=== PATIENT | male | born 2000 | race Caucasian/White ===

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

== ENCOUNTER 2020-10-26 01:57 | Emergency (ER) | payer OTHER, SELFPAY ==
[2020-10-26 04:58] LABS: Absolute Lymphocytes (CBC) 2.3 K/uL (0.7-4.9); Basophils % 0.3 % (0-1.3); Lymphocytes % 36.6 % (15.3-44.8); MPV 8.9 fL (7.6-11.3); RBC Red Blood Cell Count 5.35 M/uL (4.33-5.43)
[2020-10-26 05:22] LABS: ALT/SGPT 44 U/L (12-78); AST/SGOT 19 U/L (15-37); Albumin 4.1 g/dL (3.4-5.0); Alkaline Phosphatase 69 U/L (45-117); BUN Blood Urea Nitrogen 11 mg/dL (7-18); Bicarbonate 25 mmol/L (21-32); Bilirubin Direct < 0.1 mg/dL (0-0.2); Bilirubin Total 0.3 mg/dL (0.2-1.0); C-Reactive Protein 4.98 mg/L (<3.00); Glucose Level 85 mg/dL (74-106); NT PRO-BNP 22 pg/mL (<125); Potassium 3.7 mmol/L (3.5-5.1); Sodium Level 138 mmol/L (136-145); Troponin (Emerg Dept Use Only) < 0.02 ng/mL (0.0-0.045)
[2020-10-26] MEDS ORDERED: AZITHROMYCIN 250 MG TAB ONE (05:27)
[2020-10-26] MEDS ORDERED: ASPIRIN 81 MG CHEWABLE TABLET ONE (05:27)
[2020-10-26] MEDS ORDERED: NA CHLORIDE 0.9% 1,000 ML ONE (05:27)
[2020-10-26] MEDS ORDERED: FAMOTIDINE 20 MG TAB ONE ×2 (05:28→05:36)
--- NOTE | 2020-10-26 05:42 | ER ---
Nurse's Notes [facility] Name: Yobani Yu Age: 19 yrs Sex: Male : 2000 Arrival Date: 10/26/2020 Time: 02:03 Bed 10 Private MD: Diagnosis: Coronavirus infection, unspecified;Dyspnea;Obesity, unspecified Presentation: 10/26 02:33 Chief complaint: Patient states: Sinus symptoms that began on 10/23/20, reports taking lp1 x3 home kits that were COIVD +; Reports today began pain with breathing; hx of asthma. Coronavirus screen: Client reports previous positive COVID test result. Ebola Screen: No symptoms or risks identified at this time. Risk Assessment: Do you want to hurt yourself or someone else? Patient reports no desire to harm self or others. Onset of symptoms was October 26, 2020. 02:33 Method Of Arrival: Ambulatory lp1 02:33 Acuity: JACKIE 4 lp1 02:36 Initial Sepsis Screen: Does the patient meet any 2 criteria? No. Patient's initial lp1 sepsis screen is negative. Does the patient have a suspected source of infection? No. Patient's initial sepsis screen is negative. Triage Assessment: 05:18 General: Appears in no apparent distress. Behavior is calm, cooperative, appropriate lh3 for age. Pain: Denies pain. Respiratory: Reports cough that is non-productive, Onset: The symptoms/episode began/occurred 3 days ago, the patient has mild shortness of breath. Historical: - Allergies: 02:35 NKA; lp1 - Home Meds: 02:35 None [Active]; lp1 - PMHx: 02:35 Asthma; lp1 - PSHx: 02:35 None; lp1 - Immunization history:: Adult Immunizations up to date. - Social history:: Smoking status: Reported history of juuling and/or vaping. Screenin:35 Abuse screen: Denies threats or abuse. Denies injuries from another. Nutritional lp1 screening: No deficits noted. Tuberculosis screening: No symptoms or risk factors identified. Fall Risk None identified. Assessment: 05:18 Cardiovascular: No deficits noted. Rhythm is regular. Respiratory: Airway is patent lh3 Respiratory effort is even, unlabored, Breath sounds are diminished. Vital Signs: 02:36 BP 135 / 78; Pulse 73; Resp 18; Temp 98.4(O); Pulse Ox 100% on R/A; Weight 158.76 kg lp1 (R); Height 6 ft. 1 in. (185.42 cm); Pain 0/10; 06:41 BP 135 / 80; Pulse 19; Resp 18; Temp 98.2; Pulse Ox 98% ; lh3 02:36 Body Mass Index 46.18 (158.76 kg, 185.42 cm) lp1 ED Course: 02:03 Patient arrived in ED. bp1 02:35 Triage completed. lp1 02:35 Arm band placed on. lp1 02:40 Ramu Dudley MD is Attending Physician. edith 03:06 XRAY CXR (1 view) In Process Unspecified. EDMS 05:09 Suzanna Ward, JOHN is Primary Nurse. lh3 05:18 EKG completed in triage. Results shown to MD. lh3 05:18 Patient has correct armband on for positive identification. lh3 05:18 No provider procedures requiring assistance completed. Inserted saline lock: 20 gauge lh3 in left antecubital area, using aseptic technique. 06:24 LFT's Sent. lh3 06:24 CBC with Diff Sent. lh3 06:24 Basic Metabolic Panel Sent. lh3 06:42 IV discontinued, bleeding controlled. lh3 Administered Medications: 05:10 Not Given (order changed): Pepcid (famotidine) 20 mg IVP once; dilute with 10 mL 0.9% lh3 NaCl; give over 2 minutes 05:17 Drug: Zithromax (azithromycin) 500 mg Route: PO; lh3 06:22 Follow up: Response: No adverse reaction lh3 05:17 Drug: Aspirin Chewable Tablet 324 mg Route: PO; lh3 06:21 Follow up: Response: No adverse reaction lh3 05:17 Drug: Pepcid (famotidine) 40 mg Route: PO; lh3 06:43 Follow up: Response: No adverse reaction lh3 06:00 Drug: NS 0.9% 1000 ml Route: IV; Rate: 1 bolus; Site: left antecubital; lh3 06:23 Follow up: Response: No adverse reaction; IV Status: Completed infusion lh3 06:43 Follow up: IV Status: Completed infusion; IV Intake: 1000ml lh3 06:18 Not Given (Patient Refused): [employer]-COV Dose Pack 120 mg/mL-120 mg/mL (EUA) 1 vials IV edith at per protocol once Intake: 06:43 IV: 1000ml; Total: 1000ml. 3 Outcome: 05:41 Discharge ordered by . edith 06:42 Discharged to home ambulatory. [facility] 06:42 Condition: stable 06:42 Discharge instructions given to patient, Instructed on discharge instructions, medication usage, Demonstrated understanding of instructions, follow-up care, medications. 06:44 Patient left the ED. 3 Signatures: Dispatcher [employer] EDMS Ramu Dudley MD MD cha Pena, Laura, RN RN lp1 Gunjan Mancilla Latisha, JOHN RN lh3
--- NOTE | 2020-10-26 05:42 | EDPHYS ---
Physician Documentation [facility] Name: Yobani Yu Age: 19 yrs Sex: Male : 2000 Arrival Date: 10/26/2020 Time: 02:03 Bed 10 Private MD: CHUY Physician Ramu Dudley HPI: 10/26 03:46 This 19 yrs old Male presents to ER via Ambulatory with complaints of edith Breathing Difficulty. 03:46 The patient has shortness of breath at rest, with light activity. Onset: The edith symptoms/episode began/occurred 3 day(s) ago. Duration: The symptoms are continuous, and are steadily getting worse. The patient's shortness of breath has no apparent modifying factors. Associated signs and symptoms: Pertinent positives: non-productive cough, dizziness, nausea. Severity of symptoms: At their worst the symptoms were moderate in the emergency department the symptoms have improved mildly. The patient has not experienced similar symptoms in the past. Historical: - Allergies: 02:35 NKA; lp1 - Home Meds: 02:35 None [Active]; lp1 - PMHx: 02:35 Asthma; lp1 - PSHx: 02:35 None; lp1 - Immunization history:: Adult Immunizations up to date. - Social history:: Smoking status: Reported history of juuling and/or vaping. ROS: 03:46 Constitutional: Negative for fever, chills, and weight loss, Eyes: Negative for injury, edith pain, redness, and discharge, ENT: Negative for injury, pain, and discharge, Neck: Negative for injury, pain, and swelling, Cardiovascular: Negative for chest pain, palpitations, and edema, Abdomen/GI: Negative for abdominal pain, nausea, vomiting, diarrhea, and constipation, Back: Negative for injury and pain, : Negative for injury, bleeding, discharge, and swelling, MS/Extremity: Negative for injury and deformity, Skin: Negative for injury, rash, and discoloration, Neuro: Negative for headache, weakness, numbness, tingling, and seizure, Psych: Negative for depression, anxiety, suicide ideation, homicidal ideation, and hallucinations, Allergy/Immunology: Negative for hives, rash, and allergies, Endocrine: Negative for neck swelling, polydipsia, polyuria, polyphagia, and marked weight changes, Hematologic/Lymphatic: Negative for swollen nodes, abnormal bleeding, and unusual bruising. 03:46 Respiratory: Positive for cough, shortness of breath, at rest. Exam: 03:46 Constitutional: This is a well developed, well nourished patient who is awake, alert, edith and in no acute distress. Head/Face: Normocephalic, atraumatic. Eyes: Pupils equal round and reactive to light, extra-ocular motions intact. Lids and lashes normal. Conjunctiva and sclera are non-icteric and not injected. Cornea within normal limits. Periorbital areas with no swelling, redness, or edema. ENT: Nares patent. No nasal discharge, no septal abnormalities noted. Tympanic membranes are normal and external auditory canals are clear. Oropharynx with no redness, swelling, or masses, exudates, or evidence of obstruction, uvula midline. Mucous membranes moist. Neck: Trachea midline, no thyromegaly or masses palpated, and no cervical lymphadenopathy. Supple, full range of motion without nuchal rigidity, or vertebral point tenderness. No Meningismus. Chest/axilla: Normal chest wall appearance and motion. Nontender with no deformity. No lesions are appreciated. Cardiovascular: Regular rate and rhythm with a normal S1 and S2. No gallops, murmurs, or rubs. Normal PMI, no JVD. No pulse deficits. Respiratory: Lungs have equal breath sounds bilaterally, clear to auscultation and percussion. No rales, rhonchi or wheezes noted. No increased work of breathing, no retractions or nasal flaring. Abdomen/GI: Soft, non-tender, with normal bowel sounds. No distension or tympany. No guarding or rebound. No evidence of tenderness throughout. Back: No spinal tenderness. No costovertebral tenderness. Full range of motion. Male : Normal genitalia with no discharge or lesions. Skin: Warm, dry with normal turgor. Normal color with no rashes, no lesions, and no evidence of cellulitis. MS/ Extremity: Pulses equal, no cyanosis. Neurovascular intact. Full, normal range of motion. Neuro: Awake and alert, GCS 15, oriented to person, place, time, and situation. Cranial nerves II-XII grossly intact. Motor strength 5/5 in all extremities. Sensory grossly intact. Cerebellar exam normal. Normal gait. Psych: Awake, alert, with orientation to person, place and time. Behavior, mood, and affect are within normal limits. 03:46 Musculoskeletal/extremity: DVT Exam: No signs of deep vein thrombosis. no pain, no swelling, no tenderness, negative Homans' sign noted on exam, no appreciated bluish discoloration, no erythema, no increased warmth. 06:19 ECG was reviewed by the Attending Physician. [facility] Vital Signs: 02:36 BP 135 / 78; Pulse 73; Resp 18; Temp 98.4(O); Pulse Ox 100% on R/A; Weight 158.76 kg lp1 (R); Height 6 ft. 1 in. (185.42 cm); Pain 0/10; 06:41 BP 135 / 80; Pulse 19; Resp 18; Temp 98.2; Pulse Ox 98% ; lh3 02:36 Body Mass Index 46.18 (158.76 kg, 185.42 cm) lp1 MDM: 03:40 Patient medically screened. [facility] 05:39 Differential diagnosis: Anxiety Reaction asthma, Bronchitis CHF exacerbation, pulmonary edith edema, Pulmonary Embolism reactive airway disease, Sepsis. Antibiotic administration: The patient is discharged and will get outpatient antibiotics, Zithromax. The patient's Wells Deep Vein Thrombosis Score was calculated as follows: Total Score: 0-2 Pts- Low Risk. Differential Diagnosis: Bronchitis Influenza Upper Respiratory Infection Sinusitis Pharyngitis Otitis Media Allergic Rhinitis Asthma Exacerbation Viral Syndrome Pneumonia. The patient's pulmonary embolism risk score was calculated as follows: Total Score: 0-2 points. This patient was found to be at low risk for a pulmonary embolism by using the Well's assessment criteria. Immunization status:. Data reviewed: vital signs, nurses notes, [facility] records, lab test result(s), CBC, electrolytes, Flu: hepatic panel, Rh: urinalysis. Data interpreted: monitor and storage bin tender: rate is 73 beats/min, rhythm is regular, Pulse oximetry: on room air is 100 %. Test interpretation: by ED physician or midlevel provider: ECG, plain radiologic studies. Counseling: I had a detailed discussion with the patient and/or guardian regarding: the historical points, exam findings, and any diagnostic results supporting the discharge/admit diagnosis, radiology results. 06:19 ED course: refused Regeneron. [facility] 10/26 02:46 Order name: Basic Metabolic Panel [facility] 10/26 02:46 Order name: CBC with Diff [facility] 10/26 02:46 Order name: LFT's [facility] 10/26 02:46 Order name: Magnesium; Complete Time: 05:38 [facility] 10/26 02:46 Order name: NT PRO-BNP; Complete Time: 05:38 [facility] 10/26 02:46 Order name: Troponin (emerg Dept Use Only); Complete Time: 05:38 [facility] 10/26 02:39 Order name: XRAY CXR (1 view) lp1 10/26 02:46 Order name: Ferritin; Complete Time: 05:38 [facility] 10/26 02:46 Order name: CRP; Complete Time: 05:38 [facility] 10/26 02:46 Order name: D-Dimer; Complete Time: 05:38 [facility] 10/26 02:46 Order name: Basic Metabolic Panel; Complete Time: 05:38 [facility] 10/26 02:46 Order name: CBC with Automated Diff; Complete Time: 05:38 [facility] 10/26 02:46 Order name: Liver (Hepatic) Function; Complete Time: 05:38 [facility] 10/26 02:46 Order name: EKG; Complete Time: 02:46 [facility] 10/26 02:46 Order name: Cardiac monitoring; Complete Time: 06:43 [facility] 10/26 02:46 Order name: EKG - Nurse/Tech; Complete Time: 06:24 [facility] 10/26 02:46 Order name: IV Saline Lock; Complete Time: 06:24 [facility] 10/26 02:46 Order name: Labs collected and sent; Complete Time: 06:24 [facility] 10/26 02:46 Order name: O2 Per Protocol; Complete Time: 06:43 [facility] 10/26 02:46 Order name: O2 Sat Monitoring; Complete Time: 06:43 [facility] EC:19 Rate is 55 beats/min. Rhythm is regular. QRS [place] is Normal. ID interval is normal. QRS edith interval is normal. QT interval is normal. No Q waves. T waves are Normal. No ST changes noted. Clinical impression: Sinus bradycardia and No evidence of ischemia. Interpreted by me. Reviewed by me. Administered Medications: 05:10 Not Given (order changed): Pepcid (famotidine) 20 mg IVP once; dilute with 10 mL 0.9% lh3 NaCl; give over 2 minutes 05:17 Drug: Zithromax (azithromycin) 500 mg Route: PO; lh3 06:22 Follow up: Response: No adverse reaction lh3 05:17 Drug: Aspirin Chewable Tablet 324 mg Route: PO; lh3 06:21 Follow up: Response: No adverse reaction lh3 05:17 Drug: Pepcid (famotidine) 40 mg Route: PO; lh3 06:43 Follow up: Response: No adverse reaction lh3 06:00 Drug: NS 0.9% 1000 ml Route: IV; Rate: 1 bolus; Site: left antecubital; lh3 06:23 Follow up: Response: No adverse reaction; IV Status: Completed infusion lh3 06:43 Follow up: IV Status: Completed infusion; IV Intake: 1000ml lh3 06:18 Not Given (Patient Refused): REGEN-COV Dose Pack 120 mg/mL-120 mg/mL (EUA) 1 vials IV edith at per protocol once Disposition Summary: 10/26/20 05:41 Discharge Ordered Location: Home edith Problem: new edith Symptoms: have improved edith Condition: Stable edith Diagnosis - Coronavirus infection, unspecified edith - Dyspnea edith - Obesity, unspecified edith Followup: [facility] - With: Private Physician - When: 2 - 3 days - Reason: Recheck today's complaints, Continuance of care, Re-evaluation by your physician Discharge Instructions: - Discharge Summary Sheet edith - Upper Respiratory Infection, Adult edith - Upper Respiratory Infection, Adult, [id number] edith - Viral Respiratory Infection, [id number]-[id number] edith - Aspirin and Your Heart [facility] - COVID-19 edith - Viral Illness, Adult [facility] Forms: - Medication Reconciliation Form [facility] - Thank You Letter [facility] - Antibiotic Education [facility] - Prescription Opioid Use [facility] Prescriptions: - albuterol sulfate 90 mcg/actuation Inhalation HFA aerosol inhaler - inhale 2 puff by INHALATION route every 6 hours; 1 Pump; Refills: 0, Product edith Selection Permitted - ivermectin 3 mg Oral tablet - take 4 tablet by ORAL route once daily; 20 tablet; Refills: 0, Product [facility] Selection Permitted - Pepcid 20 mg Oral Tablet - take 1 tablet by ORAL route every 12 hours for 15 days; 30 tablet; Refills: 0, [facility] Product Selection Permitted - Zithromax 500 mg Oral Tablet - take 1 tablet by ORAL route once daily for 5 days; 5 tablet; Refills: 0, [facility] Product Selection Permitted Signatures: Dispatcher [employer] Ramu Cantu MD MD cha Pena, Laura RN RN lp1 Suzanna Ward, RN RN lh3
[2020-10-26 06:52] VITALS: BP 135/80; TEMP 98.2; O2SAT 98
--- NOTE | 2020-10-26 09:03 | RAD REPORT ---
EXAM DESCRIPTION: RAD - Chest Single View - 10/26/2020 3:05 am CLINICAL HISTORY: SOB Chest pain. COMPARISON: No comparisons FINDINGS: Portable technique limits examination quality. The lungs are grossly clear. The heart is normal in size. No displaced fractures. IMPRESSION: No acute intrathoracic process suspected.
== END 2020-10-26 06:44 | disposition home or self-care (01) ==
LOC: ER 01:57
DX: U07.1 COVID-19 (principal); E66.9 Obesity, unspecified
CPT/HCPCS: 36415; 71045; 80048; 80076; 82728; 83735; 83880; 84484; 85025; 85379; 86140; 93005; 99284; J7030; U0003

== ENCOUNTER 2022-05-16 16:22 | Emergency (ER) | payer SELFPAY ==
[2022-05-16] MEDS ORDERED: IBUPROFEN 400 MG TAB ONE (16:41)
--- NOTE | 2022-05-16 17:06 | RAD REPORT ---
EXAM DESCRIPTION: RAD - Ankle Right 3 View - 05/16/2022 4:50 pm CLINICAL HISTORY: Right ankle pain FINDINGS: No fracture or dislocation is seen.
--- NOTE | 2022-05-16 17:33 | ER ---
Nurse's Notes [facility] Name: Yobani Yu Age: 21 yrs Sex: Male : 2000 Arrival Date: 05/16/2022 Time: 16:26 Bed 10 Private MD: Diagnosis: Sprain of ankle-right Presentation: 05/16 16:34 Chief complaint: Patient states: Rolled left ankle. C/O pain to left ankle. Coronavirus ld1 screen: At this time, the client does not indicate any symptoms associated with coronavirus-19. Ebola Screen: No symptoms or risks identified at this time. Initial Sepsis Screen: Does the patient meet any 2 criteria? No. Patient's initial sepsis screen is negative. Does the patient have a suspected source of infection? No. Patient's initial sepsis screen is negative. Risk Assessment: Do you want to hurt yourself or someone else? Patient reports no desire to harm self or others. Onset of symptoms was May 16, 2022. 16:34 Method Of Arrival: Ambulatory ld1 16:34 Acuity: JACKIE 4 ld1 Triage Assessment: 16:34 General: Appears in no apparent distress. comfortable, Behavior is calm, cooperative, ld1 appropriate for age. Pain: Complains of pain in left foot Pain does not radiate. Pain currently is 9 out of 10 on a pain scale. Quality of pain is described as throbbing, Pain began suddenly. EENT: No signs and/or symptoms were reported regarding the EENT system. Neuro: Level of Consciousness is awake, alert, obeys commands, Oriented to person, place, time, situation. Cardiovascular: Capillary refill < 3 seconds Patient's skin is warm and dry. Respiratory: Airway is patent Respiratory effort is even, unlabored. GI: Abdomen is round non-distended. : No signs and/or symptoms were reported regarding the genitourinary system. Derm: No signs and/or symptoms reported regarding the dermatologic system. Musculoskeletal: Reports pain in left foot. Historical: - Allergies: 16:34 NKA; ld1 - Home Meds: 16:34 None [Active]; ld1 - PMHx: 16:34 Asthma; ld1 - PSHx: 16:34 None; ld1 - Immunization history:: Adult Immunizations up to date, Client reports receiving the 2nd dose of the Covid vaccine. - Social history:: Smoking status: Patient denies any tobacco usage or history of. Patient/guardian denies using alcohol. Screenin:25 [facility] ED Fall Risk Assessment (Adult) History of falling in the last 3 months, mb9 including since admission No falls in past 3 months (0 pts) Confusion or Disorientation No (0 pts) Intoxicated or Sedated No (0 pts) Impaired Gait Yes (1 pt) Mobility Assist Device Used No (0 pt) Altered Elimination No (0 pt) Score/Fall Risk Level 0 - 2 = Low Risk Oriented to surroundings, Maintained a safe environment, Educated pt \T\ family on fall prevention, incl call for assistance when getting out of bed. Abuse screen: Denies threats or abuse. Nutritional screening: No deficits noted. Tuberculosis screening: No symptoms or risk factors identified. Assessment: 16:45 General: Appears in no apparent distress. Pain: Complains of pain in right foot Pain mb9 does not radiate. Pain currently is 8 out of 10 on a pain scale. Quality of pain is described as throbbing, Pain began suddenly, Aggravated by increased activity, repositioning, weight bearing. Neuro: Level of Consciousness is awake, alert, obeys commands, Oriented to person, place, time, situation, Appropriate for age. Cardiovascular: Capillary refill < 3 seconds is brisk Patient's skin is warm and dry. Respiratory: Airway is patent Respiratory effort is even, unlabored, Respiratory pattern is regular, symmetrical. GI: No signs and/or symptoms were reported involving the gastrointestinal system. : No signs and/or symptoms were reported regarding the genitourinary system. EENT: No signs and/or symptoms were reported regarding the EENT system. Derm: Skin is pink, warm \T\ dry. Musculoskeletal: Range of motion: limited in right ankle Swelling present in right ankle. Vital Signs: 16:34 BP 130 / 70; Pulse 83; Resp 18; Temp 97.6(TE); Pulse Ox 100% on R/A; Weight 156.94 kg; ld1 Height 6 ft. 0 in. (182.88 cm); Pain 9/10; 17:28 BP 101 / 56; Pulse 88; Resp 18; Pulse Ox 100% ; mb9 16:34 Body Mass Index 46.93 (156.94 kg, 182.88 cm) ld1 ED Course: 16:26 Patient arrived in ED. am2 16:27 Ramu Ruiz PA is PHCP. cp 16:27 Noe Phillips DO is Attending Physician. cp 16:34 Triage completed. ld1 16:34 Arm band placed on right wrist. ld1 16:35 Tashia Childress, RN is Primary Nurse. mb9 16:40 Placed in gown. Bed in low position. Call light in reach. Side rails up X 1. Client mb9 placed on continuous cardiac and pulse oximetry monitoring. NIBP monitoring applied. 17:32 Bernardino Ruvalcaba MD is Referral Physician. cp 17:38 No provider procedures requiring assistance completed. Patient did not have IV access mb9 during this emergency room visit. Administered Medications: 16:43 Drug: Ibuprofen 800 mg Route: PO; mb9 17:07 Follow up: Response: No adverse reaction mb9 Medication: 17:25 VIS not applicable for this client. mb9 Outcome: 17:33 Discharge ordered by MD. cp 17:38 Discharged to home ambulatory. mb9 17:38 Condition: stable 17:38 Discharge instructions given to patient, Instructed on discharge instructions, follow up and referral plans. Demonstrated understanding of instructions, follow-up care, medications, Prescriptions given X 1. 17:42 Patient left the ED. mb9 Signatures: Ramu Ruiz PA PA cp Britany Odom am2 Janis Hermosillo, RN RN ld1 Tashia Childress, RN RN mb9
--- NOTE | 2022-05-16 17:33 | EDPHYS ---
Physician Documentation [facility] Name: Yobani Yu Age: 21 yrs Sex: Male : 2000 Arrival Date: 05/16/2022 Time: 16:26 Bed 10 Private MD: ED Physician Noe Phillips HPI: 05/16 16:33 This 21 yrs old Male presents to ER via Unassigned with complaints of Ankle cp Injury. 16:33 The patient presents with an injury. The complaints affect the right ankle. Onset: The cp symptoms/episode began/occurred today. Context: resulted from a mis-step by the patient, hyper plantar flexion The patient can fully bear weight on the affected extremity. the patient is able to ambulate, with mild difficulty. Associated signs and symptoms: The patient has no apparent associated signs or symptoms. 16:33 Severity of symptoms: in the emergency department the symptoms are unchanged, despite cp home interventions. Historical: - Allergies: 16:34 NKA; ld1 - Home Meds: 16:34 None [Active]; ld1 - PMHx: 16:34 Asthma; ld1 - PSHx: 16:34 None; ld1 - Immunization history:: Adult Immunizations up to date, Client reports receiving the 2nd dose of the Covid vaccine. - Social history:: Smoking status: Patient denies any tobacco usage or history of. Patient/guardian denies using alcohol. ROS: 16:35 MS/extremity: Positive for pain, swelling, tenderness, of the right ankle, Negative for cp decreased range of motion, deformity, paresthesias. 16:35 Constitutional: Negative for body aches, chills, fever, poor PO intake. cp 16:35 Eyes: Negative for injury, pain, redness, and discharge. cp 16:35 Neck: Negative for pain with movement, pain at rest. 16:35 Cardiovascular: Negative for chest pain. 16:35 Respiratory: Negative for cough. 16:35 Abdomen/GI: Negative for abdominal pain. 16:35 Back: Negative for pain at rest, pain with movement. 16:35 Neuro: Negative for numbness, tingling, weakness. 16:35 All other systems are negative. Exam: 16:40 Constitutional: The patient appears in no acute distress, alert, awake, well developed, cp well nourished. 16:40 Head/Face: Normocephalic, atraumatic. cp 16:40 Neck: ROM/movement: is normal, is supple, without pain, no range of motions limitations. 16:40 Chest/axilla: Inspection: normal. 16:40 Cardiovascular: Rate: normal. 16:40 Respiratory: the patient does not display signs of respiratory distress, Respirations: normal, no use of accessory muscles, no retractions, labored breathing, is not present. 16:40 Abdomen/GI: Exam negative for discomfort, distension, guarding, Inspection: abdomen appears normal. 16:40 Back: pain, is absent, ROM is normal. 16:40 Musculoskeletal/extremity: Extremities: noted in the right ankle: pain, tenderness lateral and anterior ankle, There is no evidence of decreased ROM, deformity, ROM: limited active range of motion due to pain, in the right ankle, Pulses: noted to be 2+ in the right dorsalis pedis artery, the right foot and right ankle Sensation intact. no pain to palpation noted proximal right fibula and/or base of right fifth metatarsal, Achilles tendon intact. Vital Signs: 16:34 BP 130 / 70; Pulse 83; Resp 18; Temp 97.6(TE); Pulse Ox 100% on R/A; Weight 156.94 kg; ld1 Height 6 ft. 0 in. (182.88 cm); Pain 9/10; 17:28 BP 101 / 56; Pulse 88; Resp 18; Pulse Ox 100% ; mb9 16:34 Body Mass Index 46.93 (156.94 kg, 182.88 cm) ld1 MDM: 16:29 Patient medically screened. cp 17:00 Differential diagnosis: fracture, sprain, dislocation. cp 17:06 Independent interpretation of the following test(s) in the Emergency Department X-Ray: cp My interpretation is right ankle negative for fracture. 17:32 Data reviewed: vital signs, nurses notes, radiologic studies, plain films. cp 17:32 Counseling: I had a detailed discussion with the patient and/or guardian regarding: the cp historical points, exam findings, and any diagnostic results supporting the discharge/admit diagnosis, radiology results, to return to the emergency department if symptoms worsen or persist or if there are any questions or concerns that arise at home. Response to treatment: the patient's symptoms have mildly improved after treatment, and as a result, I will discharge patient. 03/03 16:33 Order name: XRAY Ankle RIGHT 3 view cp 05/16 17:05 Order name: Gil wrap-joint; Complete Time: 17:26 cp 05/16 17:07 Order name: [facility] ED Administered Medications: 16:43 Drug: Ibuprofen 800 mg Route: PO; mb9 17:07 Follow up: Response: No adverse reaction mb9 Disposition: 19:06 Co-signature as Attending Physician, Noe Phillips DO I was immediately available on-site ms3 in the Emergency Department for consultation in the care of the patient. Disposition Summary: 05/16/22 17:33 Discharge Ordered Location: Home cp Problem: new cp Symptoms: have improved cp Condition: Stable cp Diagnosis - Sprain of ankle - right cp Followup: cp - With: Bernardino Ruvalcaba MD - When: 1 week - Reason: pain continues Discharge Instructions: - Discharge Summary Sheet cp - Ankle Sprain cp - RICE Therapy for Routine Care of Injuries cp Forms: - Medication Reconciliation Form cp - Thank You Letter cp - Antibiotic Education cp - Prescription Opioid Use cp - Work release form mb9 Prescriptions: - Ibuprofen 800 mg Oral Tablet - take 1 tablet by ORAL route every 8 hours As needed take with food; 30 tablet; cp Refills: 0, Product Selection Permitted Signatures: Dispatcher [employer] EDMS Ramu Ruiz PA PA cp Noe Phillips DO DO ms3 Janis Hermosillo, RN RN ld1 Tashia Childress RN RN mb9 Corrections: (The following items were deleted from the chart) 05/17 13:53 05/16 16:40 Musculoskeletal/extremity: Extremities: noted in the right ankle: pain, cp tenderness lateral and anterior ankle, There is no evidence of decreased ROM, deformity, ROM: limited active range of motion due to pain, in the right ankle, Pulses: noted to be 2+ in the right dorsalis pedis artery, the right foot and right ankle Sensation intact. cp
[2022-05-16 17:47] VITALS: TEMP 97.6; O2SAT 100
[2022-05-16 17:48] VITALS: BP 101/56
== END 2022-05-16 17:42 | disposition home or self-care (01) ==
LOC: ER 16:22
DX: S93.401A Sprain of unspecified ligament of right ankle, initial encounter (principal)
CPT/HCPCS: 99283